=== PATIENT | female | born 2000 | race Caucasian/White ===

== ENCOUNTER 2021-03-15 10:01 | Emergency (ER) | payer BC ==
[~2021-03-15] VITALS: Ht 154.9 cm; Wt 50.0 kg
[2021-03-15] MEDS ORDERED: dexamethasone sod phosphate 10mg/ml inj PO STA (10:16)
[2021-03-15] MEDS ORDERED: CefTRIAXone 1000mg IM Kit (w/lidocaine diluent) IM ONE (10:20)
[2021-03-15] MEDS ORDERED: LIDO20SO16 PO (10:50)
[2021-03-15] MEDS ORDERED: METH4TAB3 PO (10:50)
[2021-03-15] MEDS ORDERED: CEPH250T PO (10:50)
== END 2021-03-15 11:13 | disposition home or self-care (01) ==
LOC: ER 10:02
DX: J02.0 Streptococcal pharyngitis (principal); Z20.822 Contact with and (suspected) exposure to COVID-19; R50.9 Fever, unspecified; Z79.2 Long term (current) use of antibiotics; Z79.899 Other long term (current) drug therapy
CPT/HCPCS: 36415; 87081; 87880; 96372; 99283; J0696; J1100; U0003; U0005